=== PATIENT | male | born 1955 | race Two or more races ===

== ENCOUNTER 2023-11-11 11:38 | Outpatient (CLI) | payer BC ==
[2023-11-11 13:00] LABS: Hematocrit 45.2 % (38.8-50.0); Hemoglobin 15.4 g/dL (13.5-17.5); Mean Corpuscular HGB CONC 34.1 g/dL (32.0-36.0); Mean Corpuscular Hemoglobin 30.6 pg (27.0-33.0); Mean Corpuscular Volume 89.7 fl (81.2-95.1); Mean Platelet Volume 10.1 fl (7.4-10.4); Platelet Count 214 10x3/uL (150-450); RBC Distribution Width 13.7 % (11.5-14.5); Red Blood Cell (RBC) Count 5.04 10x6/uL (4.32-5.72)
[2023-11-11 13:23] LABS: PTT 30.6 sec (22.0-33.0); Prothrombin Time 10.6 sec (9.5-12.1)
[2023-11-11 13:26] LABS: Anion Gap 12 mmol/L (10-20); BUN (Urea Nitrogen) 14 mg/dL (8.4-25.7); Calc. Creatinine Clearance 0 mL/min (70-130); Calcium 9.3 mg/dL (7.8-10.44); Carbon Dioxide 27 mmol/L (23-31); Chloride 105 mmol/L (98-107); Estimated GFR 90; Glucose 93 mg/dL (80-115); Potassium 4.2 mmol/L (3.5-5.1); Sodium 140 mmol/L (136-145)
== END 2023-11-11 11:39 | disposition home or self-care (01) ==
LOC: LABBT 11:38
PROVIDERS: ATTEND Urology
DX: Z01.812 Encounter for preprocedural laboratory examination (principal); N20.1 Calculus of ureter
CPT/HCPCS: 80048; 85027; 85610; 85730; 87086

== ENCOUNTER 2023-11-17 08:46 | Day surgery (SDC) | payer BC ==
[2023-11-11 12:29] VITALS: BMI 27.5
[2023-11-17] MEDS ORDERED: PROPOFOL 40 ML ONE (09:40)
[2023-11-17] MEDS ORDERED: Sodium Chloride 0.9% 100 ML ONE (10:05)
[2023-11-17] MEDS ORDERED: CEFAZOLIN 2 GM VIAL ONE (10:05)
[2023-11-17] MEDS ORDERED: fentaNYL PF 100 MCG/2 ML SYRINGE ONE (10:20)
[2023-11-17] MEDS ORDERED: Dexamethasone 20 MG/5 ML VIAL ONE (11:11)
[2023-11-17] MEDS ORDERED: Lidocaine 1% PF 5 ML VIAL ONE (11:11)
[2023-11-17] MEDS ORDERED: ePHEDrine Sulfate 50 MG/10 ML VIAL ONE ×2 (11:11→11:15)
[2023-11-17] MEDS ORDERED: Ondansetron PF 4 MG/2 ML Vial ONE (11:11)
[2023-11-17] MEDS ORDERED: Ketorolac Tromethamine 30 MG (1 mL) VIAL ONE (11:11)
[2023-11-17] MEDS ORDERED: Iopamidol 30 ML ONE (12:49)
== END 2023-11-17 14:24 | disposition home or self-care (01) ==
LOC: SDC 08:46
PROVIDERS: ATTEND Urology
PROC: 0T778DZ Dilation of Left Ureter with Intraluminal Device, Via Natural or Artificial Opening Endoscopic (ICD-10-PCS; principal; 2023-11-17)
PROC: 0TC78ZZ Extirpation of Matter from Left Ureter, Via Natural or Artificial Opening Endoscopic (ICD-10-PCS; principal; 2023-11-17)
DX: N13.2 Hydronephrosis with renal and ureteral calculous obstruction (principal); Z88.8 Allergy status to other drugs, medicaments and biological substances; Z79.899 Other long term (current) drug therapy; Z98.890 Other specified postprocedural states
CPT/HCPCS: 74420; 82365; 88300; C1874; J1100; J1885; J2405; J2704; J3490; Q9967